=== PATIENT | female | born 1995 | race Caucasian/White ===

== ENCOUNTER → 2021-03-14 | Emergency (ER) | payer BC ==
[~2021-03-14] VITALS: Ht 162.6 cm; Wt 52.2 kg
== END | disposition home or self-care (01) ==
LOC: ER 17:58
DX: S00.81XA Abrasion of other part of head, initial encounter (principal); S00.83XA Contusion of other part of head, initial encounter; V80.010A Animal-rider injured by fall from or being thrown from horse in noncollision accident, initial encounter; Y93.89 Activity, other specified; Y92.89 Other specified places as the place of occurrence of the external cause; Y99.8 Other external cause status